=== PATIENT | female | born 1975 | race Caucasian/White ===

== ENCOUNTER 2018-11-06 08:59 | Emergency (ER) | payer SELFPAY ==
--- NOTE | 2018-11-06 09:47 | ED Physician Chart ---
ED Chief Complaint/HPI - Patient Information Date Seen:: 11/06/18 Time Seen:: 09:00 Chief Complaint:: Fever History of Present Illness:: onset x 2 days of fever, cough, S/T, and congestion; pt denies trauma, LOC, ALOC , AMS, H/As, E/As, weakness, dizziness, paresthesias, vertigo, neck pain, C/P, SOB, C/P, Abd. 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:: Allergies Allergy/AdvReac Type Severity Reaction Status Date / Time MDX Cephalexin [From Keflex] Allergy Verified 11/06/18 09:18 MDX Iodine [Iodine] Allergy HIVES Verified 11/06/18 09:18 MDX Penicillin [Penicillin] Allergy ANAPHYLACTIC Verified 11/06/18 09:18 SHOCK MDX Prochlorperazine AdvReac siezure Verified 11/06/18 09:18 [From Compazine] Vitals:: Vital Signs - 8 hr 11/06/18 11/06/18 09:07 09:27 Temp 97.3 F 97.3 F HR 110 110 RR 18 18 BP 151/97 151/97 O2 Sat % 97 97 Historian:: Patient Review:: Nurse's Note Reviewed ED Review of Systems - Review of Systems General/Constitutional: Fever, No chills, No weight loss, No weakness, No diaphoresis, No edema, No loss of appetite Skin: No skin lesions, No rash, No bruising Head: No headache, No light-headedness Eyes: No loss of vision, No pain, No diplopia ENT: No earache, Nasal drainage, Sore throat, No tinnitus Neck: No neck pain, No swelling, No thyromegaly, No stiffness, No mass noted Cardio Vascular: No chest pain, No palpitations, No PND, No orthopnea, No edema Pulmonary: No SOB, Cough, No sputum, No wheezing GI: No nausea, No vomiting, No diarrhea, Pain, No melena, No hematochezia, No constipation, No hematemesis G/U: No dysuria, No frequency, No hematuria, No nacturia Ob Nurse: No vaginal discharge, No abnormal vaginal bleed, No contraction Musculoskeletal: Bone or joint pain, Back pain, No muscle pain Endocrine: No polyuria, No polydipsia Psychiatric: No prior psych history, No depression, No anxiety, No suicidal ideation, No homicidal ideation, No auditory hallucination, No visual hallucination Hematopoietic: No bruising, No lymphadenopathy Allergic/Immuno: No urticaria, No angioedema Neurological: No syncope, No focal symptoms, No weakness, No paresthesia, No headache, No seizure, No dizziness, No confusion, No vertigo ED Past Medical History - Past Medical History Obtainable: Yes Past Medical History: HTN, Renal stone, Arthritis Family History: HTN Social History: Non Smoker, No Alcohol, No Drug Use, Single Surgical History: None Psychiatricy History: None Medication: Reviewed Family Medical History - Family Member Mother History Unknown: Yes Ethnicity: Non- Living Status: Hx Family Cancer: No Hx Family Coronary Artery Disease: No Hx Family Congestive Heart Failure: No Hx Family Hypertension: No Hx Family Stroke: No Hx Family Diabetes: No Hx Family Seizures: No Hx Family Dementia: No Hx Family AIDS: No Hx Family HIV: No Hx Family COPD: No Hx Family Hepatitis: No Hx Family Psychiatric Problems: No Hx Family Tuberculosis: No ED Physical Exam - Physical Examination General/Constitutional: Awake, Well-developed, well-nourished, Alert, No distress, GCS 15, Non-toxic appearing, Ambulatory Head: Atraumatic Eyes: Lids, conjuctiva normal, PERRL, EOMI Skin: Nl inspection, No rash, No skin lesions, No ecchymosis, Well hydrated, No lymphadenopathy ENMT: External ears, nose nl, TM canals nl, Nasal exam nl, Lips, teeth, gums nl , Tonsils nl Other ENMT comments:: Pharynx: Injected; no exudates; no abscesses; no FBs; no airway obstruction; + Nasal Congestion Neck: Nontender, Full ROM w/o pain, No JVD, No nuchal rigidity, No bruit, No mass, No stridor Other Neck comments:: supple; no meningeal signs; no cervical tenderness; no bruits Respiratory: Nl effort/Exclusion, Clear to Auscultation, No Wheeze/Rhonchi/Rales Cardio Vascular: RRR, No murmur, gallop, rubs, NL S1 S2, Carotid/Femoral/Distal pulses equal bilaterally GI: No tenderness/rebounding/guarding, No organomegaly, No hernia, Normal BS's, Nondistended, No mass/bruits, No McBurney tenderness, Rectum exam nl Other GI comments:: no pulsatile masses : No CVA tenderness Extremities: No tenderness or effusion, Full ROM, normal strength in all extremities, No edema, Normal digits & nails Neuro/Psych: Alert/oriented, DTR's symmetric, Normal sensory exam, Normal motor strength, Judgement/insight normal, Mood normal, Normal gait, No focal deficits Other Neuro/Psych comments:: no focal signs Misc: Normal back, No paraspinal tenderness ED Septic Shock - . Is Septic Shock (SBP<90, OR Lactate>4 mmol\L) present?: No - <6hrs of presentation: Vital Signs: Vital Signs - 8 hr 11/06/18 11/06/18 09:07 09:27 Temp 97.3 F 97.3 F HR 110 110 RR 18 18 BP 151/97 151/97 O2 Sat % 97 97 ED Reassessment (Disposition) - Reassessment Reassessment:: pt tolerated po fluids well in ER; pt is asymptomatic upon discharge Reassessment Condition:: Improved - Diagnosis Diagnosis:: Dx: Sore Throat; Pharyngitis; Cough; Bronchitis; Congestion; Sinusitis; Fever; URI - Aftercare/Follow up Instructions Aftercare/Follow-Up Instructions:: Counseled pt regarding lab results/diagnosis & need follow up, Refer to Discharge Instructions, Counseled pt & family regarding lab results/diagnosis & need follow up Medication Prescribed:: Rx: Azithromycin (Z-Pack): Take as prescribed (#6); Tylenol 500mg po qid prn fever/pain; Cool Mist Vaporizer; Salt Water Gargles; Encourage Fluids - Patient Disposition Discharge/Transfer:: Home Condition at Disposition:: Stable, Improved (RTER prn if existing s/s reoccur and/or get worse and/or any other new s/s occur; ACIs given for all above Dx; Refer to ENT Specialist/Apartment Locator DEANNA; F/U with PMD in one day or prn; RTER prn if concerned)
== END 2018-11-06 09:46 | disposition home or self-care (01) ==
LOC: ER 08:59
DX: J40 Bronchitis, not specified as acute or chronic (principal); J02.9 Acute pharyngitis, unspecified; J06.9 Acute upper respiratory infection, unspecified; J32.9 Chronic sinusitis, unspecified; I10 Essential (primary) hypertension; M19.90 Unspecified osteoarthritis, unspecified site; Z87.442 Personal history of urinary calculi; Z88.0 Allergy status to penicillin; Z88.1 Allergy status to other antibiotic agents; Z88.8 Allergy status to other drugs, medicaments and biological substances; Z91.041 Radiographic dye allergy status
CPT/HCPCS: Z7502

== ENCOUNTER 2018-11-15 01:25 | Emergency (ER) | payer SELFPAY ==
[2018-11-15] MEDS ORDERED: Sodium Chloride 0.9% 1,000 ML IV ONE (01:44)
[2018-11-15] MEDS ORDERED: HYDROmorphone 1 mg/mL 1mL Syr IVP STA (01:46)
--- NOTE | 2018-11-15 01:54 | ED Physician Chart ---
ED Chief Complaint/HPI - Patient Information Date Seen:: 11/15/18 Time Seen:: 01:35 Chief Complaint:: abdominal pain History of Present Illness:: Patient developed mid abdominal pain 2-3 days ago. She vomited 3 times yellow fluid. No diarrhea. No dysuria. Patient was taking Ativan 1-2 mg twice a day for last 10 years but ran out of Ativan 1 week ago. Allergies:: Allergies Allergy/AdvReac Type Severity Reaction Status Date / Time cephalexin Allergy Mild Verified 11/06/18 09:43 iodine Allergy Mild Verified 11/06/18 09:44 prochlorperazine Allergy Verified 11/06/18 09:45 [From Compazine] Penicillins AdvReac Verified 11/06/18 09:45 Vitals:: Vital Signs - 8 hr 11/15/18 01:25 Temp 98.1 F HR 124 RR 19 BP 181/108 O2 Sat % 98 Historian:: Patient Review:: Nurse's Note Reviewed ED Review of Systems - Review of Systems General/Constitutional: No fever, No chills Skin: No skin lesions Head: No headache Eyes: No loss of vision ENT: No earache Neck: No neck pain, No swelling Cardio Vascular: No chest pain, No palpitations Pulmonary: No SOB GI: Nausea, Vomiting, Pain G/U: No dysuria Musculoskeletal: No bone or joint pain Endocrine: No polyuria, No polydipsia Psychiatric: No prior psych history Hematopoietic: No bruising Allergic/Immuno: No urticaria Neurological: No syncope, No focal symptoms ED Past Medical History - Past Medical History Past Medical History: Other (chronic back pain; panic disorder; polycystic ovarian disease; fibromyalgia) Family History: Heart disease, Diabetes Melitus, HTN, Other (congestive heart failure; fibromyalgia; kidney disease) Social History: Non Smoker, No Alcohol Surgical History: other (5 back surgeries; ruptured ovarian cyst; left wrist for fracture; neurostimulator placed) Psychiatricy History: Other (panic disorder) Medication: Reviewed Family Medical History - Family Member Mother History Unknown: Yes Ethnicity: Non- Living Status: Hx Family Cancer: No Hx Family Coronary Artery Disease: No Hx Family Congestive Heart Failure: No Hx Family Hypertension: No Hx Family Stroke: No Hx Family Diabetes: No Hx Family Seizures: No Hx Family Dementia: No Hx Family AIDS: No Hx Family HIV: No Hx Family COPD: No Hx Family Hepatitis: No Hx Family Psychiatric Problems: No Hx Family Tuberculosis: No ED Physical Exam - Physical Examination General/Constitutional: Awake, Alert Other Gen/Cons comments:: Mild distress Head: Atraumatic Eyes: Lids, conjuctiva normal, PERRL Skin: Nl inspection ENMT: External ears, nose nl, Nasal exam nl Neck: No nuchal rigidity Respiratory: Nl effort/Exclusion, Clear to Auscultation Cardio Vascular: RRR, No murmur, gallop, rubs, NL S1 S2 GI: No organomegaly, No hernia, Normal BS's, Nondistended Other GI comments:: Midabdominal tenderness Extremities: No edema Neuro/Psych: No focal deficits ED Labs/Radiology/EKG Results - Lab Results Comments:: Abnormal Lab Results 11/15/18 11/15/18 11/15/18 02:02 02:02 02:02 WBC 11.5 H RBC 4.94 Hgb 13.2 Hct 40.5 L MCV 82.1 MCH 26.8 L MCHC Differential 32.6 RDW 13.2 Plt Count 413 H MPV 6.6 Neutrophils % 65.9 Lymphocytes % 20.0 Monocytes % 6.3 Eosinophils % 3.8 Basophils % 4.0 H Sodium 137 Potassium 3.4 L Chloride 103 Carbon Dioxide 21.1 Anion Gap 16.3 H BUN 12 Creatinine 0.8 Est GFR ( Amer) > 60.0 Est GFR (Non-Af Amer) > 60.0 BUN/Creatinine Ratio 15.0 Glucose 120 H Calcium 9.1 Magnesium 2.0 Lipase 8 L Serum , Qual Urine Test NEGATIVE 11/15/18 02:02 WBC RBC Hgb Hct MCV MCH MCHC Differential RDW Plt Count MPV Neutrophils % Lymphocytes % Monocytes % Eosinophils % Basophils % Sodium Potassium Chloride Carbon Dioxide Anion Gap BUN Creatinine Est GFR ( Amer) Est GFR (Non-Af Amer) BUN/Creatinine Ratio Glucose Calcium Magnesium Lipase Serum , Qual NEGATIVE Urine Test - Radiology Results Results: CT abdomen and pelvis showed no acute disease - EKG Interpretations Rate & Rhythm: sinus tachycardia with a rate of 121 [place]: normal ED Assessment - Assessment General Assessment: A large component of patient's abdominal abdominal pain, nausea and vomiting is probably benzodiazepine withdrawal. She was urged to see her physician as soon as possible for any prescription which she may need. She was also urged to drink lots a half Gatorade half water. She will be prescribed Zofran 4 mg oral disintegrating tablet to take 1 every 4-6 hours as necessary for nausea and vomiting. At 0505 patient felt improved. ED Septic Shock - . Is Septic Shock (SBP<90, OR Lactate>4 mmol\L) present?: No - <6hrs of presentation: Vital Signs: Vital Signs - 8 hr 11/15/18 01:25 Temp 98.1 F HR 124 RR 19 BP 181/108 O2 Sat % 98 ED Reassessment (Disposition) - Diagnosis Diagnosis:: Hypokalemia; leukocytosis; gastritis; benzodiazepine withdrawal - Aftercare/Follow up Instructions Aftercare/Follow-Up Instructions:: Refer to Discharge Instructions Medication Prescribed:: Zofran 4 mg oral disintegrating tablet #10 to take one every 4-6 hours as necessary for nausea and vomiting - Patient Disposition Discharge/Transfer:: Home Condition at Disposition:: Stable, Improved
[2018-11-15] MEDS ORDERED: HYDROmorphone 1 mg/mL 1mL Syr ONE (02:04)
[2018-11-15 02:07] LABS: % EOSINOPHILS 3.8 % (0.0-5.0); % MONOCYTES 6.3 % (2.0-10.0); % NEUTROPHILS 65.9 % (40.0-80.0); BASOPHILE ABSOLUTE 0.5 Th/cumm (0-0.2); EOSINOPHILE ABSOLUTE 0.4 Th/cmm (0.1-0.4); HEMATOCRIT 40.5 % (41.0-60); HEMOGLOBIN 13.2 gm/dL (12-16); LYMPHOCYTE ABSOLUTE 2.3 Th/cmm (1.5-3.0); MEAN CELL VOLUME 82.1 fl (81-100); MEAN CORPUSCULAR HEMOGLOBIN 26.8 pg (27.0-31.0); MEAN CORPUSCULAR HGB CONC 32.6 pg (28.0-36.0); MEAN PLATELET VOLUME 6.6 fl; MONOCYTE ABSOLUTE 0.7 Th/cmm (0.3-1.0); NEUTROPHILE ABSOLUTE 7.6 Th/cmm (1.8-8.0); PLATELET COUNT 413 Th/cmm (150-400); RED BLOOD COUNT 4.94 Mil/cmm (3.80-5.10); RED CELL DISTRIBUTION WIDTH 13.2 % (11.5-20.0); WHITE BLOOD COUNT 11.5 Th/cmm (4.8-10.8)
[2018-11-15 02:21] LABS: ANION GAP 16.3 (7.0-16.0); BUN - UREA NITROGEN 12 mg/dL (7-25); CALCIUM SERUM 9.1 mg/dL (8.6-10.3); CARBON DIOXIDE 21.1 mEq/L (21.0-31.0); CHLORIDE 103 mEq/L (98-107); CREATININE - SERUM 0.8 mg/dL (0.6-1.2); GFR AFRICAN-AMERICAN > 60.0 ml/min (>90); GFR NON AFRICAN-AMERICAN > 60.0 ml/min; GLUCOSE 120 mg/dL (70-105); LIPASE 8 U/L (11-82); POTASSIUM SERUM 3.4 mEq/L (3.5-5.1); SODIUM SERUM 137 mEq/L (136-145)
[2018-11-15] MEDS ORDERED: Potassium Chloride 20 mEq ER Tab PO ONE ×2 (05:10→05:12)
--- NOTE | 2018-11-15 10:24 | Diagnostic Imaging Report ---
CT abdomen and pelvis without intravenous contrast Indication: Abdominal pain Comparison: CT abdomen and pelvis on 03/03/2016, Technique: Axial images were obtained from the lung bases to the bilateral proximal femurs without IV contrast. Coronal reconstructions were made. total DLP: 827, CTDI16.6 FINDINGS: Hypoventilatory and atelectatic changes of the lungs are noted. Evaluation of the solid organs is limited due to lack of IV contrast. Evaluation of the solid organs is limited due to lack of IV contrast. No evidence of focal hepatic, splenic, pancreatic, or additional lesions. No evidence of hydronephrosis or focal renal lesions. Left adnexal fullness is noted with small follicular cystic changes. No evidence of bowel obstruction. Moderate stool is noted. There appears the oral contrast within the bowel from previous procedure. Appendix is not well-visualized, however there are no secondary signs to suggest appendicitis. No free fluid or free air. There is evidence of posterior fusion of L4 and L5. A spinal stimulator apparatus is also noted with reservoir seen along the right buttock region. Additional apparatus, likely pain pump is seen along the right anterior abdominal wall. Degenerative changes of the lower lumbar spine is noted. IMPRESSION: Moderate stool throughout the colon. No evidence of bowel obstruction Appendix is not visualized, however, there are no secondary signs to suggest acute appendicitis. Hepatic steatosis Evidence of posterior lumbar spinal fusion at L4 and L5. Spinal stimulator noted. Additional apparatus, likely pain pump is seen along the right anterior abdominal wall, correlate clinically.
== END 2018-11-15 05:30 | disposition home or self-care (01) ==
LOC: ER 01:25
DX: K29.70 Gastritis, unspecified, without bleeding (principal); E87.6 Hypokalemia; D72.829 Elevated white blood cell count, unspecified; F13.239 Sedative, hypnotic or anxiolytic dependence with withdrawal, unspecified; Z98.890 Other specified postprocedural states; Z88.0 Allergy status to penicillin; Z88.1 Allergy status to other antibiotic agents; Z91.041 Radiographic dye allergy status
CPT/HCPCS: 99284; 96374; 96375; 93005; 74176; 36415; 85025; 84703; 81025; 83690; 83735; 80048; J2060; J2405; J1170; J7030; Z7502

== ENCOUNTER 2018-11-15 11:39 | Emergency (ER) | payer SELFPAY ==
--- NOTE | 2018-11-15 11:53 | ED Physician Chart ---
ED Chief Complaint/HPI - Patient Information Date Seen:: 11/15/18 Time Seen:: 11:55 Chief Complaint:: body aches History of Present Illness:: body aches in a patient who has come to the ER 3 times since 11/06/18. This is the second time that she has come into our ER since 11/15/2018. Patient exhibits drug-seeking behavior. Allergies:: Allergies Allergy/AdvReac Type Severity Reaction Status Date / Time cephalexin Allergy Mild Verified 11/06/18 09:43 iodine Allergy Mild Verified 11/06/18 09:44 mushroom Allergy Verified 11/15/18 11:49 prochlorperazine Allergy Verified 11/06/18 09:45 [From Compazine] Penicillins AdvReac Verified 11/06/18 09:45 Historian:: Patient Review:: Nurse's Note Reviewed ED Review of Systems - Review of Systems General/Constitutional: No fever, No chills, No weakness, No diaphoresis, No edema, No loss of appetite, Other (body aches; chronic pain) Skin: No skin lesions, No rash, No bruising Head: No headache, No light-headedness Eyes: No loss of vision, No pain, No diplopia ENT: No earache, No nasal drainage, No sore throat, No tinnitus Neck: No neck pain, No swelling, No thyromegaly, No stiffness, No mass noted Cardio Vascular: No chest pain, No palpitations, No PND, No orthopnea, No edema Pulmonary: No SOB, No cough, No sputum, No wheezing GI: Nausea, Pain, No melena, No hematochezia, No constipation, No hematemesis G/U: No dysuria, No frequency, No hematuria Musculoskeletal: No bone or joint pain, No back pain, No muscle pain Endocrine: No polyuria, No polydipsia Psychiatric: No prior psych history, No depression, No anxiety, No suicidal ideation, No homicidal ideation, No auditory hallucination, No visual hallucination Hematopoietic: No bruising, No lymphadenopathy Allergic/Immuno: No urticaria, No angioedema Neurological: No syncope, No focal symptoms, No weakness, No paresthesia, No headache, No seizure, No dizziness, No confusion, No vertigo ED Past Medical History - Past Medical History Obtainable: Yes Past Medical History: Other (chronic pain) Surgical History: other (pain pump) Family Medical History - Family Member Mother History Unknown: Yes Ethnicity: Non- Living Status: Hx Family Cancer: No Hx Family Coronary Artery Disease: No Hx Family Congestive Heart Failure: No Hx Family Hypertension: No Hx Family Stroke: No Hx Family Diabetes: No Hx Family Seizures: No Hx Family Dementia: No Hx Family AIDS: No Hx Family HIV: No Hx Family COPD: No Hx Family Hepatitis: No Hx Family Psychiatric Problems: No Hx Family Tuberculosis: No ED Physical Exam - Physical Examination General/Constitutional: Awake, Well-developed, well-nourished, Alert, GCS 15, Non-toxic appearing, Ambulatory Other Gen/Cons comments:: complaining of pain, requesting Dilaudid. overweight. Head: Atraumatic Eyes: Lids, conjuctiva normal, PERRL, EOMI Skin: Nl inspection, No rash, No skin lesions, No ecchymosis, Well hydrated, No lymphadenopathy ENMT: External ears, nose nl Neck: Nontender, Full ROM w/o pain, No nuchal rigidity, No mass, No stridor Respiratory: Nl effort/Exclusion, Clear to Auscultation, No Wheeze/Rhonchi/Rales Cardio Vascular: RRR, No murmur, gallop, rubs, NL S1 S2 GI: No organomegaly, No hernia, Normal BS's, Nondistended Other GI comments:: Melodramatic on exam. Normal BS. No peritoneal signs. : No CVA tenderness Extremities: No tenderness or effusion, Full ROM, normal strength in all extremities, No edema, Normal digits & nails Neuro/Psych: Alert/oriented, Normal sensory exam, Normal motor strength, Judgement/insight normal, Mood normal, Normal gait, No focal deficits Misc: Normal back, No paraspinal tenderness ED Assessment - Assessment General Assessment: Patient insisted on getting pain medicine. CURES POSITIVE. Instructed that she would not get any Xanax or Dilaudid. ED Septic Shock - . Is Septic Shock (SBP<90, OR Lactate>4 mmol\L) present?: No ED Reassessment (Disposition) - Reassessment Reassessment Condition:: Improved - Diagnosis Diagnosis:: Chronic pain Drug seeking behavior. Malingering. Slightly low phosphorous. Contaminated urine. - Aftercare/Follow up Instructions Aftercare/Follow-Up Instructions:: Refer to Discharge Instructions Notes:: Follow up with chronic pain clinic. Medication Prescribed:: none. - Patient Disposition Discharge/Transfer:: Home Condition at Disposition:: Stable, Improved
[2018-11-15] MEDS ORDERED: Lactated Ringer 1,000 ML IV ONE (12:17)
[2018-11-15 12:31] LABS: % BASOPHILS 0.6 % (0.0-2.0); % EOSINOPHILS 3.9 % (0.0-5.0); % LYMPHOCYTES 18.1 % (20.0-50.0); % MONOCYTES 5.8 % (2.0-10.0); % NEUTROPHILS 71.6 % (40.0-80.0); EOSINOPHILE ABSOLUTE 0.3 Th/cmm (0.1-0.4); HEMATOCRIT 37.6 % (41.0-60); HEMOGLOBIN 12.6 gm/dL (12-16); LYMPHOCYTE ABSOLUTE 1.5 Th/cmm (1.5-3.0); MEAN CELL VOLUME 81.2 fl (81-100); MEAN CORPUSCULAR HEMOGLOBIN 27.2 pg (27.0-31.0); MEAN CORPUSCULAR HGB CONC 33.6 pg (28.0-36.0); MEAN PLATELET VOLUME 6.4 fl; MONOCYTE ABSOLUTE 0.5 Th/cmm (0.3-1.0); NEUTROPHILE ABSOLUTE 5.9 Th/cmm (1.8-8.0); PLATELET COUNT 392 Th/cmm (150-400); RED BLOOD COUNT 4.63 Mil/cmm (3.80-5.10)
[2018-11-15 12:36] LABS: WHITE BLOOD COUNT 8.2 Th/cmm (4.8-10.8)
[2018-11-15 12:54] LABS: ALB/GLOB RATIO 1.6 (1.0-1.8); ALBUMIN 4.2 gm/dL (3.7-5.3); ALKALINE PHOSPHATASE 68 U/L (34-104); AMYLASE SERUM 18 U/L (29-103); ANION GAP 13.4 (7.0-16.0); BILIRUBIN,TOTAL 0.5 mg/dL (0.3-1.0); BUN - UREA NITROGEN 14 mg/dL (7-25); CALCIUM SERUM 8.7 mg/dL (8.6-10.3); CARBON DIOXIDE 23.3 mEq/L (21.0-31.0); CHLORIDE 105 mEq/L (98-107); CREATININE - SERUM 0.8 mg/dL (0.6-1.2); GFR AFRICAN-AMERICAN > 60.0 ml/min (>90); GFR NON AFRICAN-AMERICAN > 60.0 ml/min; GLUCOSE 102 mg/dL (70-105); LIPASE 7 U/L (11-82); MAGNESIUM 2.1 mg/dL (1.9-2.7); PHOSPHOROUS 2.4 mg/dL (2.5-5.0); POTASSIUM SERUM 3.7 mEq/L (3.5-5.1); SGOT 39 U/L (13-39); SGPT/ALT 38 U/L (7-52); SODIUM SERUM 138 mEq/L (136-145); TOTAL PROTEIN,SERUM 6.9 gm/dL (6.0-8.3)
[2018-11-15 13:10] LABS: URINE SOURCE CLEAN C
[2018-11-15 13:13] LABS: URINE BILIRUBIN SMALL (NEGATIVE); URINE BLOOD NEGATIVE (NEGATIVE); URINE GLUCOSE (UA) NEGATIVE (NEGATIVE); URINE KETONE NEGATIVE (NEGATIVE); URINE LEUKOCYTE ESTERASE NEGATIVE (NEGATIVE); URINE MICROSCOPIC INDICATED? YES; URINE NITRATE NEGATIVE (NEGATIVE); URINE PROTEIN TRACE mg/dL (NEGATIVE); URINE UROBILINOGEN 0.2 E.U./dL (0.2 - 1.0)
[2018-11-15 13:50] LABS: INF A SCREEN NEG FOR INF A
[2018-11-15 13:51] LABS: INF B SCREEN NEG FOR INF B
[2018-11-15 13:52] LABS: URINE CLARITY HAZY (CLEAR); URINE COLOR YELLOW
[2018-11-15 13:53] LABS: URINE BACTERIA FEW /hpf (NONE SEEN); URINE EPITHELIAL CELLS MANY /lpf (FEW); URINE RBC NONE SEEN /hpf (0-5); URINE WBC 0-2 /hpf (0-5)
== END 2018-11-15 13:55 | disposition home or self-care (01) ==
LOC: ER 11:39
DX: G89.29 Other chronic pain (principal); M79.10 Myalgia, unspecified site; E83.39 Other disorders of phosphorus metabolism; R82.79 Other abnormal findings on microbiological examination of urine; Z72.89 Other problems related to lifestyle; Z76.5 Malingerer [conscious simulation]; Z88.0 Allergy status to penicillin; Z88.1 Allergy status to other antibiotic agents; Z91.041 Radiographic dye allergy status; Z91.018 Allergy to other foods; Z88.8 Allergy status to other drugs, medicaments and biological substances
CPT/HCPCS: 99283; 96374; 96375; 36415; 87804 ×2; 85025; 81001; 82150; 83690; 83735; 84100; 80053; J1885; J2405; Z7502

== ENCOUNTER 2018-12-10 20:29 | Emergency (ER) | payer SELFPAY ==
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
== END 2018-12-10 23:00 | disposition home or self-care (01) ==
LOC: ER 20:29
DX: R68.84 Jaw pain (principal); K14.0 Glossitis; F41.9 Anxiety disorder, unspecified; Z72.89 Other problems related to lifestyle; I10 Essential (primary) hypertension; F31.9 Bipolar disorder, unspecified; Z88.0 Allergy status to penicillin; Z88.1 Allergy status to other antibiotic agents; Z91.018 Allergy to other foods; Z88.7 Allergy status to serum and vaccine
CPT/HCPCS: Z7502; Z7610